=== PATIENT | male | born 1980 | race Caucasian/White ===

== ENCOUNTER 2021-01-04 07:57 | Emergency (ER) | payer BC, SELFPAY ==
[~2021-01-04] VITALS: Ht 172.7 cm; Wt 89.6 kg
[2021-01-04] MEDS ORDERED: PROPARACAINE OPHTH 0.5%, 15ML ONE (08:13)
[2021-01-04] MEDS ORDERED: FLUORESCEIN OPHTHALMIC 1 MG STRIP ONE ×2 (08:13→08:26)
--- NOTE | 2021-01-04 09:03 | NUR ---
Both MAURA Martin and MD Chiang have been to bedside for eval.
[2021-01-04 09:15] VITALS: BP 133/88
== END 2021-01-04 09:18 | disposition home or self-care (01) ==
LOC: ED 08:40
DX: S05.01XA Injury of conjunctiva and corneal abrasion without foreign body, right eye, initial encounter (principal); X58.XXXA Exposure to other specified factors, initial encounter; Y93.89 Activity, other specified; Y92.89 Other specified places as the place of occurrence of the external cause; Y99.8 Other external cause status
CPT/HCPCS: 99283